=== PATIENT | female | born 1985 | race Asian ===

== ENCOUNTER 2020-02-03 06:28 | Emergency (ER) | payer BC ==
[~2020-02-03] VITALS: Ht 177.8 cm; Wt 53.1 kg
[2020-02-03 06:50] VITALS: BP_SYST 139
[2020-02-03 08:05] VITALS: BP_SYST 139
== END 2020-02-03 08:04 | disposition home or self-care (01) ==
LOC: SED 06:28
DX: J02.9 Acute pharyngitis, unspecified (principal); K12.0 Recurrent oral aphthae
CPT/HCPCS: 36415; 86403; 87081; 99283

== ENCOUNTER 2021-07-25 23:35 | Emergency (ER) | payer BC ==
[~2021-07-25] VITALS: Ht 157.5 cm; Wt 54.4 kg
[2021-07-25 23:40] VITALS: BP_SYST 123
== END 2021-07-26 00:47 | disposition left against medical advice (07) ==
LOC: SED 23:35
DX: R07.89 Other chest pain (principal); Z53.21 Procedure and treatment not carried out due to patient leaving prior to being seen by health care provider
CPT/HCPCS: 93005